=== PATIENT | female | born 1985 | race African-American/Black ===

== ENCOUNTER 2018-08-15 09:45 | Emergency (ER) | payer MEDICAID ==
[2018-08-15 10:39] LABS: ADD MAN DIFF? NO
[2018-08-15 10:55] LABS: ADD UMIC NO; UR ASCORBIC ACID NEGATIVE (NEGATIVE); UR BACTERIA FEW /HPF (NONE SEEN); UR BILIRUBIN (Dip) NEGATIVE (NEGATIVE); UR BLOOD (Dip) NEGATIVE (NEGATIVE); UR CLARITY SLIGHTLY CLOUDY (CLEAR); UR COLOR YELLOW (YELLOW); UR GLUCOSE (Dip) NEGATIVE (NEGATIVE); UR KETONES (Dip) NEGATIVE (NEGATIVE); UR LEUKOCYTE ESTERASE (Dip) NEGATIVE Leu/ul (NEGATIVE); UR NITRITE (Dip) NEGATIVE (NEGATIVE); UR RBC 0 /HPF (0-5); UR SPECIFIC GRAVITY (Dip) 1.011 (1.003-1.030); UR SQUAMOUS EPITHELIAL CELL FEW /HPF (FEW); UR TOTAL PROTEIN (Dip) NEGATIVE (NEGATIVE); UR UROBILINOGEN (Dip) NEGATIVE (NEGATIVE); UR WBC 1 /HPF (0-5)
[2018-08-15] MEDS: KETOROLAC 30 MG INJ IV (10:56)
[2018-08-15 10:57] LABS: WHITE BLOOD COUNT 10.3 10^3/ul (4.8-10.8)
[2018-08-15 10:57] LABS: BASOPHILS % 0.3 % (0.0-2.0); EOSINOPHILS # 0.1 10^3/ul (0.0-0.5); EOSINOPHILS % 0.9 % (0.0-7.0); HEMATOCRIT 33.6 % (37.0-47.0); HEMOGLOBIN 11.1 g/dl (12.0-16.0); LYMPHOCYTES # 1.7 10^3/ul (0.8-2.9); LYMPHOCYTES % 16.8 % (15.0-51.0); MEAN CORPUSCULAR HEMOGLOBIN 24.2 pg (29.0-33.0); MEAN CORPUSCULAR VOLUME 73.2 fl (82.0-101.0); MONOCYTE # 0.6 10^3/ul (0.3-0.9); MONOCYTES % 5.8 % (0.0-11.0); NEUTROPHIL # 7.8 10^3/ul (1.6-7.5); NEUTROPHILS % 75.7 % (39.0-77.0); PLATELET COUNT 237 10^3/UL (140-415); RED BLOOD COUNT 4.59 10^6/ul (4.20-5.40); RED CELL DISTRIBUTION WIDTH 16.8 % (11.5-14.5)
[2018-08-15 11:04] LABS: INR 0.99; PROTIME 13.2 Sec (11.9-14.9)
[2018-08-15 11:05] LABS: ALANINE AMINOTRANSFERASE 28 IU/L (13-69); ALBUMIN 4.1 g/dl (3.3-4.9); ALKALINE PHOSPHATASE 83 IU/L (42-121); ANION GAP 10 (5-13); ASPARTATE AMINO TRANSFERASE 18 IU/L (15-46); BILIRUBIN,INDIRECT 1.1 mg/dl (0-1.1); BILIRUBIN,TOTAL 1.1 mg/dl (0.2-1.3); BLOOD UREA NITROGEN 5 mg/dl (7-20); CALCIUM 9.2 mg/dl (8.4-10.2); CARBON DIOXIDE 27 mmol/L (21-31); CHLORIDE 104 mmol/L (97-110); CREATINE KINASE 31 IU/L (23-200); CREATININE 0.73 mg/dl (0.44-1.00); Estimated GFR > 60 mL/min (>60); GLUCOSE 85 mg/dl (70-220); PARTIAL THROMBOPLASTIN TIME 33.7 Sec (23.0-35.0); POTASSIUM 4.1 mmol/L (3.5-5.1); SODIUM 141 mmol/L (135-144); TOTAL PROTEIN 8.2 g/dl (6.1-8.1)
[2018-08-15] MEDS ORDERED: IPRATROPIUM (NEB) 0.5 MG/2.5 ML AMP (11:10)
[2018-08-15] MEDS ORDERED: ALBUTEROL 0.5% (NEB) 2.5 MG/0.5 ML AMP (11:11)
[2018-08-15 11:14] LABS: CK INDEX 0.7; CK-MB < 0.22 ng/ml (0.0-2.4); TROPONIN-I < 0.012 ng/ml (0.000-0.120)
[2018-08-15 11:15] LABS: B-TYPE NATRIURETIC PEPTIDE 23 PG/ML (0-125)
[2018-08-15] MEDS: ALBUTEROL 0.083% (NEB) 2.5 MG/3 ML AMP INH (11:18)
[2018-08-15] MEDS: IPRATROPIUM (NEB) 0.5 MG/2.5 ML AMP INH (11:18)
[2018-08-15] MEDS: SOD CHLORIDE 0.9% 100 ML (11:58)
[2018-08-15] MEDS: IOHEXOL 100 ML (12:00)
== END 2018-08-15 13:58 | disposition home or self-care (01) ==
LOC: E/R 09:45
DX: J18.1 Lobar pneumonia, unspecified organism (principal); J90 Pleural effusion, not elsewhere classified; F17.210 Nicotine dependence, cigarettes, uncomplicated
CPT/HCPCS: 71045; 71275; 80053; 81001; 81003; 81025; 82550; 82553; 83880; 84484; 85025; 85610; 85730; 93005; 94664; 96374; 99285-25